=== PATIENT | female | born 1995 | race Caucasian/White ===

== ENCOUNTER 2016-09-15 00:22 | Emergency (ER) | payer OTHER ==
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
[~2016-09-15 00:22] MED LIST: AMOXICILLIN875 MG PO; AURALGAN EAR DR14 ML OT; BENZONATATE PO; CIPRO PO; CLEOCIN HCL300 M1 PO; ENTEX PO; FLAGYL PO; KEFLEX500 M1 PO; LEVAQUIN PO; NAPROSYN500 MG PO; NO MEDICATIONS; NORCO1 TAB 10/3 PO; PHENERGAN25 M1 PO; PRENATAL1 TA1; PYRIDIUM PO; ZANTAC300 MG PO; ZOFRAN ODT4 MG PO
[2016-09-15 01:42] LABS: BASOPHIL% 0.5 % (0-2.5); EOSINOPHIL# 0.2 X10e3 (0-0.7); EOSINOPHIL% 2.5 % (0.0-7.0); HEMATOCRIT 35.7 % (35.0-45.0); HEMOGLOBIN 11.7 gm/dL (12.0-16.0); LYMPHOCYTE# 2.5 X10e3 (1.0-3.5); LYMPHOCYTE% 28.9 % (17.0-45.0); MEAN CELL VOLUME 87.1 FL (83-96); MEAN CORPUSCULAR HEMOGLOBIN 28.6 PG (28-34); MEAN CORPUSCULAR HGB CONC 32.8 g/dL (30-36); MEAN PLATELET VOLUME 10.1 FL (6.5-11.5); MONOCYTE# 0.8 X10e3 (0-1.0); MONOCYTE% 9.3 % (3.0-12.0); NEUTROPHIL# 5.2 X10e3 (1.5-7.1); NEUTROPHIL% 58.8 % (40-75); PLATELET COUNT 245 X10e3 (140-420); RED CELL DISTRIBUTION WIDTH 13.7 % (11.0-15.5); WHITE BLOOD COUNT 8.8 X10e3 (4.0-10.5)
[2016-09-15 01:44] LABS: DIFF IND NO
[2016-09-15 02:16] LABS: CALCIUM SERUM 8.8 mg/dL (8.4-10.2); CREATININE SERUM 1.2 mg/dL (0.6-1.4); GLOM FILT RATE Estimated 64.1 mL/min (>60); POTASSIUM 3.7 mmol/L (3.5-5.1)
== END 2016-09-15 03:54 | disposition home or self-care (01) ==
LOC: CED 00:22
PROVIDERS: Emergency Medicine
DX: S39.91XA Unspecified injury of abdomen, initial encounter (principal); V49.40XA Driver injured in collision with unspecified motor vehicles in traffic accident, initial encounter
CPT/HCPCS: 36415; 71020; 74177; 80048; 84703; 85025; 96374; 96375; 99284; J2270; J2405; Q9967